=== PATIENT | female | born 1960 | race Caucasian/White ===

== ENCOUNTER → 2016-10-30 | Outpatient (CLI) | payer BC ==
[~2016-10-30] MED LIST: CYCL-259 PO; ESCI1TAB18 PO; IBUP-103 PO; METO25TA3 PO; METR0.754; NAPR220T PO
== END | disposition home or self-care (01) ==
LOC: C.PAPS 12:56
PROVIDERS: ATTEND Obstetrics & Gynecology
DX: Z01.419 Encounter for gynecological examination (general) (routine) without abnormal findings (principal)

== ENCOUNTER → 2017-01-17 | Outpatient (CLI) | payer BC ==
--- NOTE | 2017-01-17 12:33 | MAMMOGRAPHY REPORT ---
BILATERAL DIGITAL SCREENING MAMMOGRAM TOMOSYNTHESIS WITH CAD: 01/17/2017 CLINICAL HISTORY: Routine screening. Patient has no complaints. TECHNIQUE: Breast tomosynthesis in addition to standard 2D mammography was performed. Current study was also evaluated with a Computer Aided Detection (CAD) system. COMPARISON: Comparison is made to exams dated: 01/11/2016 mammogram, 01/06/2015 mammogram, 01/05/2014 m ammogram, 01/07/2013 ultrasound, 01/07/2013 mammogram, and 01/02/2013 mammogram - [facility]. BREAST COMPOSITION: There are scattered areas of fibroglandular density in both breasts. FINDINGS: No suspicious masses, calcifications, or areas of architectural distortion are noted in ei ther breast. There has been no significant interval change compared to prior exams. Oval circumscrib ed 7 mm benign-appearing mass in the right upper outer quadrant is stable dating back to at least the 2013 exam, and considered benign given the benign morphology and long-term stability. IMPRESSION: ACR BI-RADS CATEGORY 2: BENIGN There is no mammographic evidence of malignancy. A 1 year screening mammogram is recommended. The pa tient will receive written notification of the results. Approximately 10% of breast cancers are not detected with mammography. A negative mammographic report should not delay biopsy if a clinically suggestive mass is present. Rose Mary Sr M.D. /:01/17/2017 08:00:44 Academic Affairs Director: Chloe Manriquez, [facility] letter sent: Normal 1/2 BI-RADS Code: ACR BI-RADS Category 2: Benign
== END | disposition home or self-care (01) ==
LOC: C.MAMM 07:43
PROVIDERS: ATTEND Obstetrics & Gynecology
DX: Z12.31 Encounter for screening mammogram for malignant neoplasm of breast (principal)

== ENCOUNTER 2021-03-24 05:19 | Observation (INO) ==
--- NOTE | 2021-03-07 08:34 | PAT Medication Instructions ---
Medication Instructions Date of Service March 07, 2021 Home Medications escitalopram oxalate 20 mg tablet 20 mg PO QPM metronidazole 0.75 % topical cream 1 applic TOPICAL BID multivitamin (Multiple Vitamins) 1 tab PO QAM ibuprofen 200 mg tablet 200 mg PO BID melatonin 5 mg capsule 10 mg PO HS fluticasone propionate 50 mcg/actuation nasal spray,suspension 1 spray INTRANASAL DAILY PRN trolamine salicylate 10 % topical cream 1 applic TOPICAL BID PRN ASK your surgeon for instructions ibuprofen 200 mg tablet 200 mg PO BID STOP taking 24 hours before surgery metronidazole 0.75 % topical cream 1 applic TOPICAL BID trolamine salicylate 10 % topical cream 1 applic TOPICAL BID PRN DO NOT take the morning of surgery multivitamin (Multiple Vitamins) 1 tab PO QAM Take morning of surgery With a small sip of water, OTHERWISE NOTHING TO EAT OR DRINK AFTER MIDNIGHT: fluticasone propionate 50 mcg/actuation nasal spray,suspension 1 spray INTRANASAL DAILY PRN (if needed) Take evening before surgery escitalopram oxalate 20 mg tablet 20 mg PO QPM melatonin 5 mg capsule 10 mg PO HS fluticasone propionate 50 mcg/actuation nasal spray,suspension 1 spray INTRANASAL DAILY PRN (if needed) Other Notes If you have any questions please call us at [phone] or [phone] or [phone] or [phone]
--- NOTE | 2021-03-11 15:33 | Anesthesiology Consultation ---
Date of Service March 11, 2021 Assessment & Plan (1) Encounter for pre-operative examination: - COVID screening: Per assessment on 03/03: Travel screen negative, no known COVID-19 positive contacts or current COVID-19 related symptoms. Patient vaccin ated. Surgeon arranging preop COVID testing. Awaiting results. - PCP office visit (03/09/21): "At this point, the patient appears to be an acceptable candidate for the proposed procedure. I will review her EKG and any other lab work which was obtained at her preoperative appointment on March 11." Preop EKG and labs done at 03/11/2021 PAT visit were unremarkable and forwarded to PCP for continuity of care. Chart Review Chart Review: Acceptable Risk for Surgery and Patient seen in Pre Admission Testing Teaching & Discussion Pre-Anesthesia Teaching/Discussion Notes: Instructed NPO after midnight before surgery,except medications with 15 cc of water. Medication instructions provided according to the PAT guidelines. History Surgery Operation Date: 03/24/21 07:00 Proposed Procedures p Left Total Hip Arthroplasty - Cliff Nguyen MD Height/Weight Height: 5 ft 8 in Weight: 70.1 kg Allergies Allergy/AdvReac Type Severity Reaction Status Date / Time No Known Allergies Allergy Verified 03/03/21 12:21 Medications Home Medications Medication Instructions Recorded Confirmed Last Taken escitalopram oxalate 20 mg tablet 20 mg PO QPM 11/25/20 03/03/21 Unknown metronidazole 0.75 % topical cream 1 applic TOPICAL BID 11/25/20 03/03/21 Unknown multivitamin (Multiple Vitamins) 1 tab PO QAM 11/25/20 03/03/21 Unknown ibuprofen 200 mg tablet 200 mg PO BID 12/06/20 03/03/21 Unknown melatonin 5 mg capsule 10 mg PO HS 12/06/20 03/03/21 Unknown fluticasone propionate 50 1 spray INTRANASAL DAILY PRN 03/03/21 03/03/21 Unknown mcg/actuation nasal spray,suspension trolamine salicylate 10 % topical 1 applic TOPICAL BID PRN 03/03/21 03/03/21 Unknown cream Past Medical History Medical History Anxiety and depression Arthritis History of blood transfusion 1970s (r/t childbirth) Exercise / Class Metabolic Activity II 4-5 Yardwork/Stairs/Walk up hill (one FS (no CP, no SOB)) Past Family History Family History Denies family history of Ovarian cancer Breast cancer Colorectal cancer Uterine cancer Past Surgical History Surgical History H/O dilation and curettage S/P colonoscopy 2019 S/P tooth extraction Past Anesthesia History No Hx of Anesthesia Complications (except post-op nausea) and No Family Hx of Anesthesia Complications History of PONV No Hx of Motion Sickness and History of PONV (+ post-op nausea) Social History Smoking Status: Never smoker Do You Dip or Chew Tobacco: No Hx Alcohol Use: Yes Alcohol type: wine alcohol intake frequency: a few times a month Hx Substance Use: No Review of Systems Patient denies chest pain, shortness of breath, dyspnea on exertion, fever, chills, cough, wheezing, palpitations. Lab Results Anesthesia Preop Results Results Anesthesia Widget: WBC 5.42 K/uL (4.8-10.8) 03/11/21 Hgb 13.9 g/dL (12.0-16.0) 03/11/21 Hct 41.8 % (37-47) 03/11/21 Plt 174 K/uL (130-400) 03/11/21 Na 140 mmol/L (136-145) 03/11/21 K 3.9 mmol/L (3.5-5.1) 03/11/21 Cl 107 mmol/L (98-107) 03/11/21 CO2 31 mmol/L (21-32) 03/11/21 BUN 22 mg/dl (7-18) H 03/11/21 Creat 0.94 mg/dl (0.6-1.2) 03/11/21 Glucose Level 80 mg/dl (70-99) 03/11/21 PT 10.4 Seconds (9.0-12.0) 03/11/21 PTT 27.1 Seconds (21.0-31.0) 03/11/21 INR 1.0 (0.9-1.1) 03/11/21 HA1c 5.3 % (4.5-5.6) 03/11/21 Urine Color Yellow 03/11/21 Urine Appearance Clear (Clear) 03/11/21 Urine pH 5.5 (4.5-7.5) 03/11/21 Urine Specific [place] 1.025 (1.000-1.030) 03/11/21 Urine Protein Negative (Negative) 03/11/21 Urine Glucose (UA) Negative (Negative) 03/11/21 Urine Ketones Negative (Negative) 03/11/21 Urine Blood Negative (Negative) 03/11/21 Urine Nitrite Negative (Negative) 03/11/21 Urine Bilirubin Negative (Negative) 03/11/21 Urine Urobilinogen Negative (Negative) 03/11/21 Urine Leukocyte Esterase 2+ (Negative) H 03/11/21 Urine WBC (Auto) >30 /hpf (0-5) H 03/11/21 Urine RBC (Auto) 0-4 /hpf (0-4) 03/11/21 Urine Hyaline Casts (Auto) 1-5 /lpf (0-5) 03/11/21 Urine Epithelial Cells (Auto) 10-20 /lpf (0-5) H 03/11/21 Urine Bacteria (Auto) Negative (Negative) 03/11/21 Blood Type O Positive 03/11/21 Antibody Screen NEGATIVE 03/11/21 Testing Electrocardiogram Date: 03/11/21 Findings: + NSR @ (31)
--- NOTE | 2021-03-14 14:55 | History & Physical Report ---
Date of Service March 14, 2021 Assessment & Plan (1) Osteoarthritis of left hip: Plan: PRE-OP Diagnosis: Left hip osteoarthritis Planned Procedure: Left total hip arthroplasty Plan: Patient is scheduled to undergo this procedure at [facility] with Dr. Nguyen on March 24, 2021. Risks and complications of the procedure such as: Infection, bleeding, pain, scarring, nerve blood vessel damage, weakness, wound problems, stiffness, incomplete relief of symptoms, hardware failure, hardware loosening, wear, fracture, tendon or ligament injury, dislocation, leg length inequality, blood clots, embolism, heart attack, stroke and were explained to the patient at her visit today by Dr. Nguyen. Informed consent form the procedure was obtained. Patient also understands risks of proceeding with surgical intervention during COVID-19 pandemic. Currently she is asymptomatic and understands she will need to be tested prior to her surgery. We have obtained preoperative medical clearance from the patient's primary care provider Dr. Omar Weldon. At her appointment today with anesthesia she will obtain the necessary testing which includes a CBC with differential, complete metabolic panel, PT/INR, urine culture and sensitivity, urinalysis,, EKG, hemoglobin A1c and a nasal culture for MRSA. During today's visit we also reviewed the total hip packet, discussed total hip precautions, talked about discharge planning, lectures offered by [facility] in regards to short replacement surgery via zoom as well as antibiotic use after total joint surgery. I did provide the patient with orders to obtain a walker, a raised toilet seat, shower chair, and I would like her to purchase a hip kit from either [facility] or [employer]. I advised her that she will be discharged from the hospital on postoperative day 1 with prescriptions for an opioid analgesic for postoperative pain control and for an anti-inflammatory medication. Advised that she will be on X strength Tylenol for supplemental pain control and baby aspirin twice daily for blood clot prevention. Patient states she plans on doing in-home physical therapy for the first 2 weeks postoperatively before transitioning to outpatient physical therapy. Patient is scheduled for 2-week postoperative follow-up with myself on April 06 at 10 AM. Patient verbalized understanding of all information provided during today's visit. She thanks for the care that she received. If she has questions or concerns should arise prior to her surgery, she will contact the clinic. History of Present Illness Chief Complaint: Chief Complaint: Left hip pain Primary Care Provider: Omar Weldon DO History of Present Illness (including history relevant to procedure): This 61-year-old female presents the clinic today for her preoperative history and physical. Patient states that she developed left hip about 2 years ago. She first noticed it while she was doing a lot of sitting. Pain has progressed since that time. She has been to physical therapy 2 or 3 times for this. She has been told she has a muscle imbalance in her gluteus medius. However, she feels like this therapy has not helped for this. She saw her primary care physician, Dr. Weldon, who gave her a muscle relaxer. She took this for a couple weeks and this did help. She is now taking ibuprofen on an intermittent basis. Denies any numbness or tingling. Patient did receive an ultrasound- guided corticosteroid injection into her left hip which only provided minimal relief. Patient states that the pain is steadily increased and now she is having difficulty ambulating. She is ready to proceed with surgical intervent ion at this point. Review Of Systems: A 14 point review of systems performed is unremarkable except for those things stated in the HPI and past medical history. Past Medical History: Problems: Pre-op exam Osteoarthritis of left hip DEPRESSION ANXIETY Asymptomatic PVCs Procedure History Procedure Procedure Date Comments wisdom teeth extraction D & C Colonoscopy normal - Age 48 Bilateral digital screening mammogram tomosynthesis with synthetic 2D with CAD 02/03/2021 - Impression: ACR BI RADS CATEGORY 1: NegativeThere is no mammographic evidence of malignancy. Plain X-ray of left hip 11/03/2020 - Impression: 1. Interval progression of the severe left hip osteoarthritis. 2. No fracture or dislocation within the pelvis or hips. Lower leg X-ray 11/03/2020 - Impression: Right femur length of 49.7 cm and left femur length of 49.3 cm. Right tibia length of 38.2 cm and left tibia length of 38.7 cm. Total right leg length of 87.9 cm and total leg length of 88 cm. Shave biopsy 07/03/2019 - glabella Mammogram 01/28/2019 - there is no mammographic evidence of malignancy Colonoscopy 01/10/2019 - -The examined portion of the ileum was normal.-Diverticulosis in the sigmoid colon and in the descending colon.-No specimens collected.-Repeat in 10 years for screening purposes. Pap smear for cervical cancer screening 03/27/2018 - Negative for intraepithelila lesion or malignancy. - negative for intraepithelial lesion or malignancy Mammogram 01/17/2017 Mammogram 01/11/2016 Allergies and Sensitivities: NKA Social history: Patient denies tobacco or illicit drug use. She states she consumes approximately 2 alcoholic beverages per week Family history: Diabetes and hypertension Current Home Meds: (Last Updated 03/11 14:31) escitalopram (escitalopram 20 mg oral tablet) 20 mg PO Daily fluticasone nasal (Flonase 50 mcg/inh nasal spray) 2 spray each nostril Daily hydrOXYzine (Vistaril 25 mg oral capsule) 25 mg PO tid PRN: as needed for anxiety Take 1-2 tablets every 8 hours as needed for anxiety or panic attacks melatonin (melatonin 10 mg oral capsule) metroNIDAZOLE topical (metroNIDAZOLE 0.75% topical cream) APPLY 1 APPLICATION TOPICALLY TWO TIMES A DAY multivitamin PO Daily Initial Wt: 03/11 69.0 kg 152 lb Allergies Allergy/AdvReac Type Severity Reaction Status Date / Time No Known Allergies Allergy Verified 03/03/21 12:21 Home Medications Medication Instructions Recorded Confirmed Type escitalopram oxalate 20 mg tablet 20 mg PO QPM 11/25/20 03/03/21 History metronidazole 0.75 % topical cream 1 applic TOPICAL BID 11/25/20 03/03/21 History multivitamin (Multiple Vitamins) 1 tab PO QAM 11/25/20 03/03/21 History ibuprofen 200 mg tablet 200 mg PO BID 12/06/20 03/03/21 History melatonin 5 mg capsule 10 mg PO HS 12/06/20 03/03/21 History fluticasone propionate 50 1 spray INTRANASAL DAILY PRN 03/03/21 03/03/21 History mcg/actuation nasal spray,suspension trolamine salicylate 10 % topical 1 applic TOPICAL BID PRN 03/03/21 03/03/21 History cream Past Med/Surg History Medical History Anxiety and depression Arthritis History of blood transfusion 1970s (r/t childbirth) Surgical History H/O dilation and curettage S/P colonoscopy 2019 S/P tooth extraction Family History Denies family history of Ovarian cancer Breast cancer Colorectal cancer Uterine cancer Social History Smoking Status: Never smoker Second Hand Exposure: No; Hx Alcohol Use: Yes Alcohol type: wine Hx Substance Use: No Preferred Language: Hebrew Communication Ability: Effective Rouge Miller Required: No Beliefs That Will Affect Care: None marital status: Current Living Situation: Spouse current occupational status: employed current occupation: [employer] Operator Feels Safe at Home: Yes Assistive Devices: Glasses Physical Exam Physical Exam: Physical Exam: (relevant to the procedure, including heart and lung evaluation) General: Alert and oriented x3 with proper grooming and hygiene Eyes: Pupils are equal and reactive to light with accommodation. Extract movements are intact Throat: Deferred due to COVID-19 precautions Cardiac: Regular rate and rhythm with no murmurs or gallops appreciated Lungs: Clear to auscultation throughout no wheezing, rales or rhonchi Abdomen: Nonobese, nondistended, nontender with NABS Extremities: Left hip: positive Chris test consistent with a hip flexion contracture of about 10 degrees. She flexes up to 100 degrees versus 130 degrees on the other side. External rotation is to 45 degrees versus 60 degrees on the other side. Internal rotation is 5 degrees versus 20 degrees on the other side. Positive Stinchfield test. Neuro: Cranial nerves II through XII are intact no motor or sensory deficit Skin: Normal in appearance with no open skin areas or discharge Results & Data ([facility]) Diagnostic Findings Studies (relevant to the procedure): X-rays done of the left hip are reviewed. This demonstrates the patient to have severe arthritis in her left hip with joint space narrowing, subchondral cyst, and sclerosis as well as marginal osteophytes, which are large.
[2021-03-24] MEDS ORDERED: LR 60ML/HR IV SCH (06:00)
[2021-03-24] MEDS ORDERED: ROPIVACAINE 0.5% HCL/PF 150 MG, BUPIVACAINE 0.75% MPF 20 ML, EPINEPHrine 0.15 MG, Ketor... INFIL SCH (06:00)
[2021-03-24] MEDS ORDERED: traMADol HCL 50 MG TABLET PO SCH (06:00)
[2021-03-24] MEDS ORDERED: METOCLOPRAMIDE HCL 10 MG TABLET PO SCH (06:00)
[2021-03-24] MEDS ORDERED: TRANEXAMIC ACID 1,000 MG **IV Intra-op IV SCH (06:00)
[2021-03-24] MEDS ORDERED: FAMOTIDINE 20 MG TAB PO SCH (06:00)
[2021-03-24] MEDS ORDERED: dexAMETHasone 4 MG TAB PO SCH (06:00)
[2021-03-24] MEDS ORDERED: ACETAMINOPHEN 500 MG TAB PO SCH (06:00)
[2021-03-24] MEDS ORDERED: CeleBREX 200 MG CAP PO SCH (06:00)
[2021-03-24] MEDS ORDERED: TRANEXAMIC ACID 1,000 MG **IV Pre-op IV SCH (06:00)
[2021-03-24] MEDS ORDERED: LR 500ML BOLUS, THEN 15ML/HR IV SCH (06:00)
[2021-03-24] MEDS ORDERED: ceFAZolin 2000MG 2,000 MG/15 ML SYR IV SCH (06:00)
[2021-03-24] MEDS ORDERED: Scopolamine 1 MG TDSY TD SCH (06:00)
[2021-03-24] MEDS ORDERED: BUPIVACAINE 0.5 % 5 MG/1 ML PF 10ML VIAL ONE (06:22)
[2021-03-24] MEDS ORDERED: ORTHO JOINT ANESTHETIC ONE (06:40)
--- NOTE | 2021-03-24 06:42 | History & Physical Bridge Note ---
Date of Service March 24, 2021 History & Physical Bridge Note I have examined the patient, reviewed the History & Physical and in the interval since the performance of the History & Physical I have noted the following changes of clinical significance: no changes noted
[2021-03-24] MEDS ORDERED: fentaNYL citrate 100 MCG/2 ML VIAL ONE (06:47)
[2021-03-24] MEDS ORDERED: MIDAZOLAM HCL 1 MG/ML 2ML VIAL ONE (06:47)
[2021-03-24] MEDS ORDERED: ePHEDrine sulfate 50 MG/ML AMP IV PRN (07:04)
[2021-03-24] MEDS ORDERED: ONDANSETRON INJ 2 MG/ML 2 ML VIAL IV PRN ×2 (07:04→09:16)
[2021-03-24] MEDS ORDERED: fentaNYL citrate 100 MCG/2 ML VIAL IV PRN (07:04)
[2021-03-24] MEDS ORDERED: HYDROmorphone INJ 1 MG/ML SYRINGE IV PRN (07:04)
[2021-03-24] MEDS ORDERED: ATROPINE SULFATE 0.1 MG/ML 10ML SYR IV PRN (07:04)
[2021-03-24] MEDS ORDERED: ePHEDrine sulfate 50 MG/ML SYR ONE (08:24)
[2021-03-24] MEDS ORDERED: LIDOCAINE 2% 20 MG/ML 5 ML SYR IV ONE (08:24)
[2021-03-24] MEDS ORDERED: PROPOFOL IV EMULSION 10 MG/ML 20 ML VIAL IV ONE (08:24)
[2021-03-24] MEDS ORDERED: ONDANSETRON INJ 2 MG/ML 2 ML VIAL ONE (08:24)
--- NOTE | 2021-03-24 09:04 | Operative Report ---
Post Operative Report Pre & Post Diagnosis Operation Date: 03/24/21 07:00 Pre-Op Diagnosis: Left Total Hip Arthritis Post-Op Diagnosis: Left Total Hip Arthritis I identified the patient and participated in the time-out.: Yes Procedure Operation Date: 03/24/21 07:00 Actual Procedures p Left Total Hip Arthroplasty(Left) - Cliff Nguyen MD Surgeon Cliff Nguyen MD Residence Life Coordinator GIA Dennison PA-C and Jenny Hoyt MS-3. No resident or fellow was available. Estimated Blood Loss 100 Findings Consistent with Post-Op Diagnosis Specimens Left femoral head Anesthesia Type Spinal MAC Complications none Disposition Disposition: Recovery Room Indications 61-year-old female, with left hip arthritis refractory to conservative management. X-rays demonstrate [id number] arthritis. Had a long discussion with her about the risks and benefits of surgery, alternatives to surgery, and expected outcomes. After reviewing all these she elected to proceed with surgery. All questions were answered. Informed consent was signed. Description of Procedure Patient was identified in the preoperative holding area and the surgical site, left hip, was marked. A spinal anesthetic was placed, then the patient was brought back to the main operating room, placed in the operating table and moved into the lateral decubitus position. Axillary roll was placed. All bony prominences were padded. Perioperative antibiotics and tranexamic acid 1 gram IV were administered. Operative extremity was prepped and draped in the normal sterile fashion. Prior to incision a multidisciplinary timeout was called. All in the room were in agreement. We began by making an incision for a posterior approach to the hip. We dissected down through subcutaneous tissues to the level of the fascia. The fascia was incised in line with the incision. Charnley bow was placed. The trochanteric bursa was excised. The piriformis and short external rotators were dissected off the posterior aspect of the hip. A box cut was made in the capsule. The femoral head was dislocated. The femoral neck cut was made at our preoperative template. The acetabulum was then exposed. The labrum was sharply excised. Contents of the cotyloid fossa were removed with electrocautery. We then began reaming at a size 8 mm less than our preoperative template. We reamed up by [address] the way up to a size 54 mm cup. This gave us good bleeding cancellus bone circumferentially. The acetabulum was then irrigated out and dried. The real Gallagher Gription cup was then impacted down into position with 45 degrees of lateral opening and 25 degrees of anteversion. A single cancellous bone screw was placed up into the ilium. Excellent fixation was obtained. An Altrx polyethylene liner for a 36 mm femoral head was then impacted into the shell. The locking mechanism was checked to ensure that it had engaged which it had. Next we turned our attention to the femur. The lateral neck was removed with a box osteotome. Intramedullary guide was used followed by the lateralizing reamer. We then reamed up to a size 6 [place] stem. We then broached all the way up to a size 6. We began trialing with a high offset neck and a +5 head. Hip was reduced. Leg lengths were symmetric. The hip was stable in extension and external rotation, and stable in the sleeper position. At 90 degrees of hip flexion the hip could be internally rotated 50 degrees before levering out of the cup. I was very happy with the stability exam. Therefore the hip was dislocated and the femoral trial was removed. The femoral canal was irrigated and dried. The real size 6 high offset [place] femoral stem was opened up. This was impacted down into position. It sat about 3 mm more proud than the femoral broach. Therefore we trialed with a +1.5 head. This gave us the same stability exam as above and again her leg lengths were symmetric. We then opened up the 36 mm ceramic femoral head with a +1.5 mm offset was opened up and gently impacted down onto the trunnion. The hip was atraumatically reduced. Another 1 gram of IV tranexamic acid was started prior to closure. The wound was irrigated out with sterile Betadine solution. The periarticular injection cocktail was then placed. The short external rotators, piriformis, and posterior capsule were repaired through drill holes in the greater trochanter using #2 Vicryl. The fascia was run with a looped #1 PDS. The subcutaneous layer was closed with #1 PDS. The dermal layer was closed with 2-0 Vicryl. Zip line was used for the skin followed by a Silverlon dressing. A compressive dressing was then placed. The patient was then rolled supine. Leg lengths were rechecked and were symmetric. An abduction pillow was placed. Sedation was lifted and the patient was transferred to recovery room in stable condition. Summary of implants: Depuy Gallagher Gription Acetabular Shell Sector Cup, 54 mm outer diameter Gallagher Cancellous bone screw, 6.5 x 35 mm Gallagher Altrx Polyethylene Acetabular Liner, Neutral, with a 36 mm inner diameter DePuy [place] Femoral stem with [place], 12/14 taper, size 6 high offset 36 mm ceramic femoral head with +1.5 offset Postoperative course: Patient will be admitted to the hospital from the recovery room. Patient will be weightbearing as tolerated with posterior hip precautions. Aspirin for DVT prophylaxis I attest to the content of the Intraoperative Record and any orders documented therein. Any exceptions are noted below.
[2021-03-24] MEDS ORDERED: METOCLOPRAMIDE HCL INJ 5 MG/ML 2 ML VIAL IV PRN (09:16)
[2021-03-24] MEDS ORDERED: diphenhydrAMINE 50 MG/ML VIAL IV PRN (09:16)
[2021-03-24] MEDS ORDERED: bisacodyL 10 MG SUPP PR PRN (09:16)
[2021-03-24] MEDS ORDERED: NALOXONE HCL 0.4 MG/1 ML VIAL/CARP IV PRN (09:16)
[2021-03-24] MEDS ORDERED: MAGNESIUM HYDROXIDE SUSP 30 ML UDC PO PRN (09:16)
[2021-03-24] MEDS ORDERED: ALUMINUM/MAGNESIUM SUSP 30 ML UDC PO PRN (09:16)
[2021-03-24] MEDS ORDERED: HYDROmorphone INJ 0.5 MG/0.5 ML SYR IV PRN (09:16)
--- NOTE | 2021-03-24 09:16 | Operative Report ---
Post Operative Report Pre & Post Diagnosis Operation Date: 03/24/21 07:00 Pre-Op Diagnosis: Left Total Hip Arthritis Post-Op Diagnosis: Left Total Hip Arthritis I identified the patient and participated in the time-out.: Yes Procedure Operation Date: 03/24/21 07:00 Actual Procedures p Left Total Hip Arthroplasty(Left) - Cliff Nguyen MD Surgeon Cliff Nguyen MD Field Supervisor GIA Dennison PA-C and Jenny Hoyt MS-3. No resident or fellow was available. Estimated Blood Loss 100 Findings Consistent with Post-Op Diagnosis Specimens left femoral head Description of Procedure I was present during the entire procedure assisting with positioning, prepping, draping, wound retraction, wound closure and dressing application. Please see Dr. Nguyen procedure note for specifics of the case. I attest to the content of the Intraoperative Record and any orders documented therein. Any exceptions are noted below.
[2021-03-24] MEDS ORDERED: FLUTICASONE PROPIONATE NA SPR 16 GM BTL PRN (09:20)
[2021-03-24] MEDS ORDERED: TROLAMINE SALICYLATE 10% CRM 255 APPLN/85 GM TUBE EXT PRN (09:20)
--- NOTE | 2021-03-24 09:51 | XRay Report ---
SINGLE VIEW PELVIS CLINICAL HISTORY: Postoperative examination. FINDINGS: An AP portable view of the hips and lower pelvis is obtained. A bipolar left hip arthroplas ty is in near-anatomic alignment. A single cortical lag screw transfixes the acetabular cup. No acute fracture is identified. Subcutaneous gas and soft tissue edema overlying the left hip are expected p ostoperative findings. Mild to moderate degenerative change is noted in the right hip. IMPRESSION: Expected postoperative findings status post left hip arthroplasty. No acute fracture is s een. ACT 112: Negative or not required by law. Electronically signed by: Shakeel Ramon M.D. 03/24/2021 9:50 AM
--- NOTE | 2021-03-24 10:00 | Anesthesiology Progress Note ---
Date of Service March 24, 2021 Anesthesia Post Procedure Vital Signs Vital Signs: Temp Pulse Pulse Resp BP Pulse Ox 03/24/21 09:50 36.8 C 84 20 153/80 H 100 03/24/21 09:40 93 H 20 147/91 H 100 03/24/21 09:30 83 12 143/79 H 100 03/24/21 09:20 85 19 153/76 H 100 03/24/21 09:14 36.4 C L 83 18 145/76 H 99 03/24/21 05:48 37.1 C 87 20 146/79 H 98 Pain Intensity Left Hip: Pain Intensity: 3 Transfer of Care Handoff Completed per policy Notes Mental Status: alert / awake / arousable and participated in evaluation Patient Amnestic to Procedure: Yes Nausea / Vomiting: adequately controlled Pain: adequately controlled Airway Patency, RR, SpO2: stable & adequate BP & HR: stable & adequate Hydration State: stable & adequate Neuraxial Anesthesia: was administered and sensory block is resolving Anesthetic Complications: no major complications apparent and Pt Satisfied with anesthetic care
[2021-03-24] MEDS: SODIUM CHLORIDE 0.9% 1000ML 1,000 ML IV SCH ×2 (10:51→19:40)
[2021-03-24] MEDS: KETOROLAC TROMETHAMINE 15 MG/ML VIAL IV SCH ×3 (10:53→23:59)
[2021-03-24] MEDS: oxyCODONE HCL IR 5 MG TAB (IMMEDIATE RELEASE) PO PRN ×2 (12:48→21:01)
[2021-03-24] MEDS: ACETAMINOPHEN 500 MG TAB PO SCH ×2 (14:35→20:59)
[2021-03-24] MEDS: ceFAZolin 2000MG 2,000 MG/15 ML SYR IV SCH ×2 (14:35→23:57)
[2021-03-24] MEDS ORDERED: TRANEXAMIC ACID / 0.7% NACL 1,000 MG/100 ML BAG IV SCH (15:30)
[2021-03-24] MEDS: Scopolamine CHECK PATCH PLACEMENT SCH ×2 (17:38→23:59)
[2021-03-24] MEDS: DOCUSATE SODIUM 100 MG CAP PO SCH (20:07)
[2021-03-24] MEDS: metroNIDAZOLE 0.75% TOPICAL GEL 45 GM TUBE TOP SCH (20:08)
[2021-03-24] MEDS ORDERED: ESCITALOPRAM OXALATE 20 MG TAB PO SCH (21:00)
[2021-03-24] MEDS ORDERED: SENNA 8.6 MG TAB PO SCH (21:00)
[2021-03-24] MEDS ORDERED: MELATONIN 3 MG TAB PO SCH (21:00)
[2021-03-25] MEDS: ACETAMINOPHEN 500 MG TAB PO SCH (05:53)
[2021-03-25] MEDS: KETOROLAC TROMETHAMINE 15 MG/ML VIAL IV SCH (05:53)
[2021-03-25] MEDS ORDERED: dexAMETHasone 4 MG TAB PO SCH (08:00)
[2021-03-25] MEDS: DOCUSATE SODIUM 100 MG CAP PO SCH (08:57)
[2021-03-25] MEDS: metroNIDAZOLE 0.75% TOPICAL GEL 45 GM TUBE TOP SCH (08:59)
[2021-03-25] MEDS ORDERED: MULTIVITAMIN TAB PO SCH ×2 (09:00)
[2021-03-25] MEDS: Scopolamine CHECK PATCH PLACEMENT SCH (09:00)
[2021-03-25] MEDS ORDERED: ASPIRIN 81 MG ECTAB PO SCH (09:00)
[2021-03-25 09:28] LABS: Basophils # (auto) 0.01 K/uL (0-0.2); Basophils % (auto) 0.1 %; Eosinophils # (auto) 0.03 K/uL (0-0.5); Eosinophils % (auto) 0.3 %; Hematocrit (blood only) 33.1 % (37-47); Hemoglobin 10.9 g/dL (12.0-16.0); Immature Granulocytes # (auto) 0.02 K/uL (0.00-0.02); Immature Granulocytes % (auto) 0.2 %; Lymphocytes # (auto) 0.81 K/uL (1.2-3.4); Lymphocytes % (auto) 7.3 %; Mean Corpuscular Hemoglobin 28.8 pg (25-34); Mean Corpuscular Hgb Conc 32.9 g/dL (32-36); Mean Corpuscular Volume 87.3 fL (80-100); Mean Platelet Volume 11.1 fL (7.4-10.4); Monocytes % (auto) 6.3 %; Neutrophils # (auto) 9.48 K/uL (1.4-6.5); Neutrophils % (auto) 85.8 %; Platelet Count 147 K/uL (130-400); RDW Coefficient of Variation 13.1 % (11.5-14.5); Red Blood Count 3.79 M/uL (4.2-5.4); White Blood Count 11.05 K/uL (4.8-10.8)
[2021-03-25 09:55] LABS: BUN Creatinine Ratio 16.7 (10-20); Calcium 8.6 mg/dl (8.5-10.1); Creatinine Clr Calc Pharmacy 57.5 ml/min; Est GFR (African American) 68.6 ml/min; Est GFR (Non-African American) 59.2 ml/min; Potassium 4.2 mmol/L (3.5-5.1)
--- NOTE | 2021-03-25 10:49 | Orthopedic Progress Note ---
Date of Service March 25, 2021 Assessment & Plan (1) S/P total hip arthroplasty: Plan: Reviewed total hip precautions Weightbearing as tolerated with walker assistance Abduction pillow use x6 weeks DVT prophylaxis with HOA stockings and aspirin Pain control with p.o. medication Keep Silverlon dressing in place until 2-week follow-up Ice with EZ wrap Patient plans on discharge today with in-home physical therapy for the first 2 weeks postoperatively. Follow-up at [facility] orthopedics previously scheduled With questions contact our clinic at [phone] Admission and Anticipated Discharge Date Admission Date: March 24, 2021 Subjective This 61-year-old female is day 1 status post left total hip arthroplasty. She is doing very well. Her pain is well controlled with p.o. pain medication. She denies chest pain, shortness of breath, fever, chills, sweats, lethargy or numbness or tingling in her left lower extremity. Review of Systems Review of Systems: All systems reviewed & are unremarkable except as noted in Subjective Physical Exam Physical Exam: Left hip: Patient is able to perform an active straight leg raise test. She can actively dorsi and plantarflex her foot without difficulty. Quad strength is 3 out of 5. Knee range of motion is from 0 to 90 degrees is performed easily. Light passive internal and external hip rotation causes no pain. Patient has no tenderness over the surgical incision site. Silverlon dressing is clean dry and intact. Logroll test is negative. Patient is able to transition from a seated to a standing position without difficulty. She is neurovascularly intact in the left lower extremity. Results & Data ([facility]) Vital Signs (Past 12 Hours) Vital Signs Temp Pulse Resp BP Pulse Ox 03/25/21 07:35 36.6 C 66 16 119/73 100 03/25/21 04:53 36.6 C 73 18 99/61 L 98 03/24/21 23:14 36.6 C 69 18 104/61 99 Laboratory Results 03/25/21 03/25/21 Range/Units 08:51 08:51 WBC 11.05 H (4.8-10.8) K/uL RBC 3.79 L (4.2-5.4) M/uL Hgb 10.9 L (12.0-16.0) g/dL Hct 33.1 L (37-47) % MCV 87.3 (80-100) fL MCH 28.8 (25-34) pg MCHC 32.9 (32-36) g/dL RDW Std Deviation 42.0 (36.4-46.3) fL RDW Coeff of Krystin 13.1 (11.5-14.5) % Plt Count 147 (130-400) K/uL MPV 11.1 H (7.4-10.4) fL Immature Gran % (Auto) 0.2 % Neut % (Auto) 85.8 % Lymph % (Auto) 7.3 % [place] % (Auto) 6.3 % Eos % (Auto) 0.3 % Baso % (Auto) 0.1 % Neut # (Auto) 9.48 H (1.4-6.5) K/uL Lymph # (Auto) 0.81 L (1.2-3.4) K/uL [place] # (Auto) 0.70 H (0.11-0.59) K/uL Eos # (Auto) 0.03 (0-0.5) K/uL Baso # (Auto) 0.01 (0-0.2) K/uL Immature Gran # (Auto) 0.02 (0.00-0.02) K/uL Sodium 138 (136-145) mmol/L Potassium 4.2 (3.5-5.1) mmol/L Chloride 108 H (98-107) mmol/L Carbon Dioxide 26 (21-32) mmol/L Anion Gap 4.0 (3-11) BUN 17 (7-18) mg/dl Creatinine 1.01 (0.6-1.2) mg/dl Est Cr Clr Drug Dosing 57.5 ml/min Est GFR ( Amer) 68.6 ml/min Est GFR (Non-Af Amer) 59.2 ml/min BUN/Creatinine Ratio 16.7 (10-20) Glucose 113 H (70-99) mg/dl Calcium 8.6 (8.5-10.1) mg/dl
--- NOTE | 2021-03-25 11:23 | Discharge Summary ---
Date of Service March 25, 2021 Admission HPI Per Admitting Provider History of Present Illness (including history relevant to procedure): This 61-year-old female presents the clinic today for her preoperative history and physical. Patient states that she developed left hip about 2 years ago. She first noticed it while she was doing a lot of sitting. Pain has progressed since that time. She has been to physical therapy 2 or 3 times for this. She has been told she has a muscle imbalance in her gluteus medius. However, she feels like this therapy has not helped for this. She saw her primary care physician, Dr. Weldon, who gave her a muscle relaxer. She took this for a couple weeks and this did help. She is now taking ibuprofen on an intermittent basis. Denies any numbness or tingling. Patient did receive an ultrasound- guided corticosteroid injection into her left hip which only provided minimal relief. Patient states that the pain is steadily increased and now she is having difficulty ambulating. She is ready to proceed with surgical intervention at this point. Review Of Systems: A 14 point review of systems performed is unremarkable except for those things stated in the HPI and past medical history. Past Medical History: Problems: Pre-op exam Osteoarthritis of left hip DEPRESSION ANXIETY Asymptomatic PVCs Procedure History Procedure Procedure Date Comments wisdom teeth extraction D & C Colonoscopy normal - Age 48 Bilateral digital screening mammogram tomosynthesis with synthetic 2D with CAD 02/03/2021 - Impression: ACR BI RADS CATEGORY 1: NegativeThere is no mammographic evidence of malignancy. Plain X-ray of left hip 11/03/2020 - Impression: 1. Interval progression of the severe left hip osteoarthritis. 2. No fracture or dislocation within the pelvis or hips. Lower leg X-ray 11/03/2020 - Impression: Right femur length of 49.7 cm and left femur length of 49.3 cm. Right tibia length of 38.2 cm and left tibia length of 38.7 cm. Total right leg length of 87.9 cm and total leg length of 88 cm. Shave biopsy 07/03/2019 - glabella Mammogram 01/28/2019 - there is no mammographic evidence of malignancy Colonoscopy 01/10/2019 - -The examined portion of the ileum was normal.-Diverticulosis in the sigmoid colon and in the descending colon.-No specimens collected.-Repeat in 10 years for screening purposes. Pap smear for cervical cancer screening 03/27/2018 - Negative for intraepithelila lesion or malignancy. - negative for intraepithelial lesion or malignancy Mammogram 01/17/2017 Mammogram 01/11/2016 Allergies and Sensitivities: NKA Social history: Patient denies tobacco or illicit drug use. She states she consumes approximately 2 alcoholic beverages per week Family history: Diabetes and hypertension Current Home Meds: (Last Updated 03/11 14:31) escitalopram (escitalopram 20 mg oral tablet) 20 mg PO Daily fluticasone nasal (Flonase 50 mcg/inh nasal spray) 2 spray each nostril Daily hydrOXYzine (Vistaril 25 mg oral capsule) 25 mg PO tid PRN: as needed for anxiety Take 1-2 tablets every 8 hours as needed for anxiety or panic attacks melatonin (melatonin 10 mg oral capsule) metroNIDAZOLE topical (metroNIDAZOLE 0.75% topical cream) APPLY 1 APPLICATION TOPICALLY TWO TIMES A DAY multivitamin PO Daily Initial Wt: 03/11 69.0 kg 152 lb Admission Exam Per Admitting Provider Physical Exam: (relevant to the procedure, including heart and lung evaluation) General: Alert and oriented x3 with proper grooming and hygiene Eyes: Pupils are equal and reactive to light with accommodation. Extract mo vements are intact Throat: Deferred due to COVID-19 precautions Cardiac: Regular rate and rhythm with no murmurs or gallops appreciated Lungs: Clear to auscultation throughout no wheezing, rales or rhonchi Abdomen: Nonobese, nondistended, nontender with NABS Extremities: Left hip: positive Chris test consistent with a hip flexion contracture of about 10 degrees. She flexes up to 100 degrees versus 130 degrees on the other side. External rotation is to 45 degrees versus 60 degrees on the other side. Internal rotation is 5 degrees versus 20 degrees on the other side. Positive Stinchfield test. Neuro: Cranial nerves II through XII are intact no motor or sensory deficit Skin: Normal in appearance with no open skin areas or discharge Principal Diagnosis Left hip osteoarthritis Discharge Exam Left hip: Patient is able to perform an active straight leg raise test. She can actively dorsi and plantarflex her foot without difficulty. Quad strength is 3 out of 5. Knee range of motion is from 0 to 90 degrees is performed easily. Light passive internal and external hip rotation causes no pain. Patient has no tenderness over the surgical incision site. Silverlon dressing is clean dry and intact. Logroll test is negative. Patient is able to transition from a seated to a standing position without difficulty. She is neurovascularly intact in the left lower extremity. Discharge Data Allergies Allergy/AdvReac Type Severity Reaction Status Date / Time No Known Allergies Allergy Verified 03/24/21 05:45 Procedures Performed Operation Date: 03/24/21 07:00 Actual Procedures p Left Total Hip Arthroplasty(Left) - Cliff Nguyen MD Hospital Course (1) S/P total hip arthroplasty: Patient had an uneventful overnight stay following total hip replacement surgery. She is very pleased with the results. She plans on discharge home today with in-home physical therapy for the first 2 weeks postoperatively. Reviewed total hip precautions Weightbearing as tolerated with walker assistance Abduction pillow use x6 weeks DVT prophylaxis with HOA stockings and aspirin Pain control with p.o. medication Keep Silverlon dressing in place until 2-week follow-up Ice with EZ wrap Patient plans on discharge today with in-home physical therapy for the first 2 weeks postoperatively. Follow-up at [facility] orthopedics previously scheduled With questions contact our clinic at [phone] Total Time Total Time Spent Total Time Spent (In Minutes): 20 minutes Discharge Plan Discharge Items Patient Disposition: Home - Home Health Services Reason For Visit: Left Total Hip Arthritis Discharge Diagnosis: Left hip osteoarthritis Activity: As commented below Lifting: None Bathing: Keep incision dry Bathing Comment: May shower tomorrow Sexual Activity: Wait until after follow-up appointment Exercise/Sports: Wait until after follow-up appointment Weightbearing Comment: as tolerated with walker assistance Non-emergency contact: Primary Care Provider Call non-emergency contact if: you have any medication questions, your pain is n ot controlled, your temperature is above 101.5, your wound has increased drainage and your wound pain has increased Follow-up/Referrals: Omar Weldon, [Primary Care Provider] - Diet: Regular Addtl Attending Provider Instructions: Post-operative Instructions Dear Patient and Family/Friends, Before you are discharged from the hospital, it is important to know what to expect when you get home after surgery. To that end, we have created this sheet of discharge instructions which covers many commonly asked questions. Make sure you go through this sheet in its entirety with your nurse before you are discharged. Please note that we will go over the specifics of your surgery and recovery when you return for your first post-operative visit. Sincerely, Dr. Nguyen Medications 1. Oxycodone 5 mg: take 1-2 tabs every 4-6 hours as needed for pain control. A prescription for 30 tablets will be sent to your pharmacy. 2. Diclofenac Sodium 75 mg: take 1 tab twice daily for 30 days post operatively for pain and inflammation relief. A prescription will be sent to your pharmacy with 1 refill. 3. Aspirin 81 mg: take 1 tab twice daily for 30 days post operatively for blood clot prevention. Please purchase this medication. 4. Extra Strength Tylenol 500 mg: take 2 tabs every 6-8 hour as needed for additional pain relief following surgery. Please purchase. Pain Expect to be in a fair amount of pain after surgery. Remember, our goal is not to eliminate your pain, but to make it tolerable. It is a good idea to stay ahead of your pain by taking the medications you were prescribed once you get home. Typically, the pain starts improving 3-7 days after surgery. You should start weaning off the narcotic pain medication (oxycodone, hydrocodone, hydromorphone, morphine) as soon as your pain improves. Please call our office if your pain is not adequately controlled. Ice Ice your operative site at least 5 times a day for 15-30 minutes at a time. Make sure you have a thin cloth between the ice or cooling unit and your skin to prevent gonzalez bite. This is especially important if you received a nerve block. Continue icing your operative site for the first 5-7 days after surgery, then as needed. Diet/Nausea/Vomiting Start by drinking clear liquids and eating crackers. If you can tolerate this, then you may resume your normal diet. If you feel nauseated or vomit, take Zofran/ondansetron (if prescribed). Please call our office if you have intractable nausea or vomiting, or, if after hours, you may go to the Emergency Room for help. Constipation Constipation is a common side effect of narcotic pain medication. If you have not had a bowel movement within 2 days after surgery, we recommend purchasing an over the counter laxative such as Milk of Magnesia, Dulcolax, or Miralax from a local pharmacy, and taking it as instructed. Call our clinic if any questions. Nerve block The anesthesia team sometimes places a nerve block to help with post-operative pain control. This results in significant numbness and inability to move the extremity. The nerve block usually wears off in 8-12 hours, but sometimes can last up to 24 hours. Please call our office if you are still unable to move your extremity after 24 hours, unless you received a pain pump to take home. Nerve blocks typically wear off quickly, so start taking pain medication as soon as you start feeling soreness near your surgical site. Weight bearing and Range of Motion. Do not bear any weight through your operative extremity immediately after surgery. If you had upper extremity surgery, do not lift anything with that arm. If you are in a knee brace, keep it locked in place until your follow-up. We will discuss your weight bearing, range of motion, and lifting restrictions in detail at your first post-operative appointment. Continuous Passive Motion (CPM) Machine If you were prescribed a CPM machine, it will start after your first post- operative appointment, at which time we will give you instructions on the range of motion settings and duration of treatment Physical therapy You will be given a prescription for physical therapy or occupational therapy at your first post-operative appointment. Typically, patients start therapy within 1 week of surgery Wound care and showering We will inspect your wound at your first post-operative visit, and may do a dressing change at that time. Most patients will be in a water-proof dressing that is removed 14 days after surgery. It is normal to see some dried blood on the dressing. Do not remove your dressing, paper strips or sutures yourself unless you are given permission. Showering is allowed the day after surgery. Do not scrub or remove any dressings. The wound should not be submerged underwater (i.e. in a bathtub or pool) until 4 weeks after surgery HOA stockings If you were given white stockings, these are to be worn at all times except to shower (on both legs) for the first 2 weeks after surgery. Driving You may not drive while taking narcotic pain medication or while in a cast, splint, sling or brace. You, the patient, need to make the final determination about when you are safe to drive, however, the earliest you may consider driving after surgery is below: Hand/Wrist/Elbow Surgery: 3 days Shoulder Surgery: 2 weeks Hip,/Knee/Ankle Surgery: 4 weeks Fracture repair: 6 weeks Return to Work Your return to work depends on what surgery was done and what type of work you do. Please bring any paperwork your employer needs completed to your first post-operative visit. Also, bring a description of your job duties, as this helps us to understand what risks you may face at work. Travel Avoid long distance travel (greater than 1 hour) in airplanes and cars for the first 6 weeks after surgery. If you must travel, you need to have a Doppler ultrasound done before you travel to rule out a blood clot in your legs. Follow-up You should have a follow-up appointment already scheduled 1-2 days after surgery. If not, please contact our office to make this appointment before you leave the hospital. When to call the office It is normal to have swelling and bruising in the limb that was operated on. This will improve with time. It is also normal to have fevers for the first 2 days after surgery. Reasons you should call your doctor include: Uncontrolled pain; Nausea, vomiting, or constipation that does not improve with medication; Fevers over 101.5, chills, sweats; Drainage or bleeding from the wound; Foul odor; Spreading areas of redness; Any other concerns Pending Studies at Discharge: No Stand-Alone Forms: My [facility], Smoking Cessation Medications and DC Order Prescriptions: New oxycodone 5 mg tablet 5 mg PO Q4H Qty: 30 RF: 0 diclofenac sodium 75 mg tablet,delayed release (DR/EC) 75 mg PO BID 30 Days Qty: 60 RF: 1 Continued escitalopram oxalate [Lexapro] 20 mg tablet 20 mg PO QPM RF: 0 metronidazole 0.75 % cream 1 applic topical BID RF: 0 multivitamin [Multiple Vitamins] Tablet 1 tab PO QAM RF: 0 melatonin 5 mg capsule 10 mg PO HS RF: 0 fluticasone propionate 50 mcg/actuation [place],Suspension 1 spray INTRANASAL DAILY PRN (Reason: Congestion) RF: 0 trolamine salicylate 10 % Cream 1 applic TOPICAL BID PRN (Reason: Pain) RF: 0 Discontinued ibuprofen 200 mg tablet 200 mg PO BID RF: 0 Discharge Orders: Discharge Order (Routine); Ordered 03/25/21 Ordered By: López Dennison Admission Data Admit Date/Time: 03/24/21 09:16 Attending Provider: Cliff Nguyen Admit Provider: Cliff Nguyen Primary Care Provider: Omar Weldon Other Providers: [facility],Home Healthcare
[2021-03-25] MEDS: oxyCODONE HCL IR 5 MG TAB (IMMEDIATE RELEASE) PO PRN (12:34)
== END 2021-03-25 13:06 | disposition home health service (06) ==
LOC: 3E 05:19 → ASU 05:19